=== PATIENT | male | born 1940 | race Caucasian/White ===

== ENCOUNTER 2025-08-21 11:47 | Day surgery (SDC) | payer MEDICARE ==
[~2025-08-21] VITALS: Ht 167.6 cm; Wt 131.5 kg
[~2025-08-21 11:47] MED LIST: LISI10TA22 PO; LR 1,000 ML IV SCH
[2025-08-21] MEDS ORDERED: MIDAZOLAM INJ 2 MG/2 ML VIAL As Ordered ONE (12:13)
[2025-08-21] MEDS: PHENYLEPHRINE 2.5% OPHTH SOL 2ML OS SCH (13:05)
[2025-08-21] MEDS: TETRACAINE 0.5% OPHTH SOLN 4ML OS SCH (13:05)
[2025-08-21] MEDS: FLURBIPROFEN 0.03% OPHTH SOLN 2.5 ML OS SCH (13:05)
[2025-08-21] MEDS: CYCLOPENTOLATE 1% OPHTH SOLN 2 ML BTL OS SCH (13:05)
[2025-08-21] MEDS: LIDOCAINE 1% SDV 5 ML VIAL As Ordered ONE (14:18)
[2025-08-21] MEDS: CEFUROXIME 1 MG/0.1 ML INTRACAMERAL INJ As Ordered ONE (14:18)
[2025-08-21 14:28] VITALS: BP 157/86; TEMP 97.9; O2SAT 98
== END 2025-08-21 14:57 | disposition home or self-care (01) ==
LOC: M SDC 11:47
PROVIDERS: ATTEND Ophthalmology
DX: H25.12 Age-related nuclear cataract, left eye (principal); I10 Essential (primary) hypertension; Z79.899 Other long term (current) drug therapy; Z90.49 Acquired absence of other specified parts of digestive tract
CPT/HCPCS: 66984; J0697; J2250; J3010; V2632

== ENCOUNTER 2025-09-18 11:17 | Day surgery (SDC) | payer MEDICARE, MEDICAID ==
[~2025-09-18] VITALS: Ht 167.6 cm; Wt 95.3 kg
[~2025-09-18 11:17] MED LIST changes: +CEFUROXIME 1 MG/0.1 ML INTRACAMERAL INJ As Ordered ONE; +LIDOCAINE 1% SDV 5 ML VIAL As Ordered ONE; +TIMO0.5S20
[2025-09-18] MEDS: TETRACAINE 0.5% OPHTH SOLN 4ML OD SCH (12:30)
[2025-09-18] MEDS: PHENYLEPHRINE 2.5% OPHTH SOL 2ML OD SCH (12:30)
[2025-09-18] MEDS: FLURBIPROFEN 0.03% OPHTH SOLN 2.5 ML OD SCH (12:30)
[2025-09-18] MEDS: CYCLOPENTOLATE 1% OPHTH SOLN 2 ML BTL OD SCH (12:30)
[2025-09-18 14:19] VITALS: BP 172/81; TEMP 98.2; O2SAT 97
== END 2025-09-18 14:48 | disposition home or self-care (01) ==
LOC: M SDC 11:17
PROVIDERS: ATTEND Ophthalmology
DX: H25.11 Age-related nuclear cataract, right eye (principal); I10 Essential (primary) hypertension; Z79.899 Other long term (current) drug therapy; Z90.49 Acquired absence of other specified parts of digestive tract; Z98.42 Cataract extraction status, left eye
CPT/HCPCS: 66984; J0697; J3010; V2632